=== PATIENT | female | born 1970 | race African-American/Black ===

== ENCOUNTER 2020-12-23 09:12 | Inpatient (IN) | payer OTHER ==
[2020-12-23] MEDS ORDERED: IBUPROFEN 400 MG TABLET (FP) PO PRN (10:03)
[2020-12-23] MEDS ORDERED: METHOCARBAMOL 500 MG TABLET PO PRN (10:03)
[2020-12-23] MEDS ORDERED: LORazepam 1 MG TABLET PO PRN (10:03)
[2020-12-23] MEDS ORDERED: MAGNESIUM HYDROX 2400MG/30ML ORAL SUSPENSION 30 ML CUP PO PRN (10:03)
[2020-12-23] MEDS ORDERED: ACETAMINOPHEN 325 MG TABLET (FP) PO PRN ×2 (10:03)
[2020-12-23] MEDS ORDERED: MENTHOL/PHENOL 1 EACH UD MM PRN (10:03)
[2020-12-23] MEDS ORDERED: MAG HYDROX/AL HYDROX/SIMETH 30 ML UNIT-DOSE CUP PO PRN (10:03)
[2020-12-23] MEDS ORDERED: BISMUTH SUBSALICYLATE 524 MG/30 ML PO PRN (10:03)
[2020-12-23] MEDS ORDERED: ONDANSETRON *ODT* 4 MG TABLET SL PRN (10:03)
[2020-12-23] MEDS ORDERED: MAGNESIUM CITRATE 300 ML BOTTLE PO PRN (10:03)
[2020-12-23 10:11] VITALS: BMI 28.3
[2020-12-23] MEDS ORDERED: TRIMETHOBENZAMIDE HCL 200MG/2ML INJ IM ONE (10:45)
[2020-12-23] MEDS: PRENATAL VITAMINS W/ FOLIC ACID TABLET (FP) PO SCH (11:40)
[2020-12-23] MEDS: LORazepam 2 MG TABLET PO SCH ×3 (11:40→22:14)
[2020-12-23] MEDS ORDERED: hydrOXYzine PAMOATE 25 MG CAPSULE (FP) PO SCH (14:00)
[2020-12-23 14:24] LABS: HEMATOCRIT 40.2 % (32.4-45.2); HEMOGLOBIN 13.6 GM/dL (10.7-15.3); MCH 31.6 pg (25.7-33.7); MCHC 33.7 g/dl (32.0-36.0); MEAN CELL VOLUME 93.6 fl (80-96); MEAN PLT VOLUME 9.9 fl (7.5-11.1); PLATELET COUNT 201 K/MM3 (134-434); RDW 19.2 % (11.6-15.6); WHITE BLOOD COUNT 6.8 K/mm3 (4.0-10.0)
[2020-12-23 14:36] LABS: ALBUMIN 4.8 g/dl (3.4-5.0); BLOOD UREA NITROGEN 13.5 mg/dL (7-18); CALCIUM 9.8 mg/dL (8.5-10.1)
[2020-12-23 14:37] LABS: BILIRUBIN,TOTAL 0.9 mg/dL (0.2-1); TOT PROT 8.4 g/dl (6.4-8.2)
[2020-12-23 14:39] LABS: CREATININE 0.7 mg/dL (0.55-1.3)
[2020-12-23 15:22] LABS: HIV INTERPRETATION NEGATIVE (NEGATIVE)
[2020-12-23] MEDS: hydrOXYzine PAMOATE 25 MG CAPSULE (FP) PO PRN (17:42)
[2020-12-23] MEDS: MELATONIN 5 MG TABLETS PO SCH (22:14)
[2020-12-23] MEDS: THIAMINE HCL 100 MG TABLET (FP) PO SCH (22:14)
[2020-12-24] MEDS: LORazepam 2 MG TABLET PO SCH ×4 (05:56→22:36)
[2020-12-24] MEDS: metFORMIN HCL 500 MG TABLET (FP) PO SCH (08:54)
[2020-12-24] MEDS: PRENATAL VITAMINS W/ FOLIC ACID TABLET (FP) PO SCH (10:52)
[2020-12-24] MEDS: NAPROXEN 500 MG TABLET PO SCH ×2 (10:52→22:36)
[2020-12-24] MEDS ORDERED: metFORMIN HCL 500 MG TABLET (FP) PO SCH (11:00)
[2020-12-24] MEDS: hydrOXYzine PAMOATE 25 MG CAPSULE (FP) PO PRN (22:36)
[2020-12-24] MEDS: THIAMINE HCL 100 MG TABLET (FP) PO SCH (22:36)
[2020-12-24] MEDS: MELATONIN 5 MG TABLETS PO SCH (22:36)
[2020-12-25] MEDS: LORazepam 1 MG TABLET PO SCH ×4 (06:22→22:19)
[2020-12-25] MEDS: metFORMIN HCL 500 MG TABLET (FP) PO SCH (06:23)
[2020-12-25] MEDS: hydrOXYzine PAMOATE 25 MG CAPSULE (FP) PO PRN ×3 (06:28→22:18)
[2020-12-25] MEDS: PRENATAL VITAMINS W/ FOLIC ACID TABLET (FP) PO SCH (10:07)
[2020-12-25] MEDS: NAPROXEN 500 MG TABLET PO SCH ×2 (10:07→22:17)
[2020-12-25] MEDS: MELATONIN 5 MG TABLETS PO SCH (22:17)
[2020-12-25] MEDS: THIAMINE HCL 100 MG TABLET (FP) PO SCH (22:17)
[2020-12-26] MEDS ORDERED: LORazepam 0.5 MG TABLET PO PRN
[2020-12-26] MEDS: LORazepam 0.5 MG TABLET PO SCH ×4 (06:07→22:31)
[2020-12-26] MEDS: metFORMIN HCL 500 MG TABLET (FP) PO SCH (06:08)
[2020-12-26 10:07] LABS: SARS-CoV-2 NAA Not Detected (Not Detected)
[2020-12-26] MEDS: NAPROXEN 500 MG TABLET PO SCH ×2 (10:24→22:30)
[2020-12-26] MEDS: PRENATAL VITAMINS W/ FOLIC ACID TABLET (FP) PO SCH (10:24)
[2020-12-26] MEDS: MELATONIN 5 MG TABLETS PO SCH (22:30)
[2020-12-26] MEDS: THIAMINE HCL 100 MG TABLET (FP) PO SCH (22:30)
[2020-12-27] MEDS ORDERED: LORazepam 0.5 MG TABLET PO ONE (05:00)
[2020-12-27 06:42] VITALS: BP 104/63; PULSE 68; TEMP 96.6
[2020-12-27] MEDS: metFORMIN HCL 500 MG TABLET (FP) PO SCH (06:53)
[2020-12-27] MEDS: hydrOXYzine PAMOATE 25 MG CAPSULE (FP) PO PRN (06:53)
== END 2020-12-27 10:05 | disposition home or self-care (01) | DRG 775 ==
LOC: YASAS 09:12 → Y3N 10:22
PROVIDERS: ADMIT Allergy & Immunology; ATTEND Allergy & Immunology
PROC: HZ2ZZZZ Detoxification Services for Substance Abuse Treatment (ICD-10-PCS; principal; 2020-12-23)
DX: F10.230 Alcohol dependence with withdrawal, uncomplicated (principal); F12.20 Cannabis dependence, uncomplicated; F32.9 Major depressive disorder, single episode, unspecified; E11.9 Type 2 diabetes mellitus without complications; Z79.84 Long term (current) use of oral hypoglycemic drugs; M50.20 Other cervical disc displacement, unspecified cervical region; M19.90 Unspecified osteoarthritis, unspecified site
CPT/HCPCS: 36415; 80053; 82962; 85027; 86780; 87389; 93005; 93010; C9803; Q0162; U0003; U0005

== ENCOUNTER 2021-08-17 09:54 | Inpatient (IN) | payer OTHER ==
[2021-08-17] MEDS ORDERED: MENTHOL/PHENOL 1 EACH UD MM PRN (10:19)
[2021-08-17] MEDS ORDERED: MAG HYDROX/AL HYDROX/SIMETH 30 ML UNIT-DOSE CUP PO PRN (10:19)
[2021-08-17] MEDS ORDERED: MAGNESIUM CITRATE 300 ML BOTTLE PO PRN (10:19)
[2021-08-17] MEDS ORDERED: ONDANSETRON *ODT* 4 MG TABLET SL PRN (10:19)
[2021-08-17] MEDS ORDERED: BISMUTH SUBSALICYLATE 262 MG/15 ML BTL PO PRN (10:19)
[2021-08-17] MEDS ORDERED: chlordiazePOXIDE HCL 25 MG CAPSULE PO PRN (10:19)
[2021-08-17] MEDS ORDERED: MAGNESIUM HYDROX 2400MG/30ML ORAL SUSPENSION 30 ML CUP PO PRN (10:19)
[2021-08-17] MEDS ORDERED: ACETAMINOPHEN 325 MG TABLET (FP) PO PRN (10:19)
[2021-08-17 10:39] VITALS: BMI 26.4
[2021-08-17] MEDS: PRENATAL VITAMINS W/ FOLIC ACID TABLET (FP) PO SCH (12:03)
[2021-08-17] MEDS: chlordiazePOXIDE HCL 25 MG CAPSULE PO SCH ×3 (12:04→22:51)
[2021-08-17] MEDS: hydrOXYzine PAMOATE 25 MG CAPSULE (FP) PO SCH ×3 (13:10→22:55)
[2021-08-17 15:33] LABS: HEMATOCRIT 38.1 % (32.4-45.2); HEMOGLOBIN 12.7 GM/dL (10.7-15.3); MCH 30.3 pg (25.7-33.7); MCHC 33.4 g/dl (32.0-36.0); MEAN CELL VOLUME 90.6 fl (80-96); MEAN PLT VOLUME 9.8 fl (7.5-11.1); PLATELET COUNT 202 10^3/uL (134-434); RDW 18.5 % (11.6-15.6); WHITE BLOOD COUNT 4.5 K/mm3 (4.0-10.0)
[2021-08-17 15:42] LABS: ALBUMIN 4.3 g/dl (3.4-5.0); BLOOD UREA NITROGEN 13.8 mg/dL (7-18)
[2021-08-17 15:43] LABS: CALCIUM 9.6 mg/dL (8.5-10.1)
[2021-08-17 15:45] LABS: CREATININE 0.7 mg/dL (0.55-1.3)
[2021-08-17 15:46] LABS: BILIRUBIN,TOTAL 0.6 mg/dL (0.2-1); TOT PROT 7.6 g/dl (6.4-8.2)
[2021-08-17] MEDS: ACETAMINOPHEN 325 MG TABLET (FP) PO PRN (18:01)
[2021-08-17] MEDS: THIAMINE HCL 100 MG TABLET (FP) PO SCH (22:55)
[2021-08-17] MEDS: MELATONIN 5 MG TABLETS PO SCH (22:55)
[2021-08-18] MEDS: hydrOXYzine PAMOATE 25 MG CAPSULE (FP) PO SCH ×5 (05:34→22:13)
[2021-08-18] MEDS: chlordiazePOXIDE HCL 25 MG CAPSULE PO SCH ×4 (05:35→22:14)
[2021-08-18] MEDS: metFORMIN HCL 500 MG TABLET (FP) PO SCH (06:10)
[2021-08-18] MEDS: PRENATAL VITAMINS W/ FOLIC ACID TABLET (FP) PO SCH (10:09)
[2021-08-18] MEDS: METHOCARBAMOL 500 MG TABLET PO PRN (16:21)
[2021-08-18] MEDS: THIAMINE HCL 100 MG TABLET (FP) PO SCH (22:13)
[2021-08-18] MEDS: MELATONIN 5 MG TABLETS PO SCH (22:14)
[2021-08-18] MEDS: IBUPROFEN 400 MG TABLET (FP) PO PRN (22:15)
[2021-08-19] MEDS: hydrOXYzine PAMOATE 25 MG CAPSULE (FP) PO SCH ×5 (06:29→22:16)
[2021-08-19] MEDS: chlordiazePOXIDE HCL 25 MG CAPSULE PO SCH ×4 (06:30→22:17)
[2021-08-19] MEDS: metFORMIN HCL 500 MG TABLET (FP) PO SCH (06:31)
[2021-08-19] MEDS: PRENATAL VITAMINS W/ FOLIC ACID TABLET (FP) PO SCH (11:06)
[2021-08-19] MEDS: ACETAMINOPHEN 325 MG TABLET (FP) PO PRN (17:43)
[2021-08-19] MEDS: THIAMINE HCL 100 MG TABLET (FP) PO SCH (22:16)
[2021-08-19] MEDS: MELATONIN 5 MG TABLETS PO SCH (22:16)
[2021-08-19] MEDS: IBUPROFEN 400 MG TABLET (FP) PO PRN (22:18)
[2021-08-20] MEDS ORDERED: chlordiazePOXIDE HCL 10 MG CAPSULE PO PRN
[2021-08-20] MEDS: hydrOXYzine PAMOATE 25 MG CAPSULE (FP) PO SCH ×5 (06:32→22:17)
[2021-08-20] MEDS: metFORMIN HCL 500 MG TABLET (FP) PO SCH (06:32)
[2021-08-20] MEDS: chlordiazePOXIDE HCL 10 MG CAPSULE PO SCH ×4 (06:32→22:16)
[2021-08-20] MEDS: PRENATAL VITAMINS W/ FOLIC ACID TABLET (FP) PO SCH (10:19)
[2021-08-20] MEDS: ACETAMINOPHEN 325 MG TABLET (FP) PO PRN (18:08)
[2021-08-20] MEDS: THIAMINE HCL 100 MG TABLET (FP) PO SCH (22:17)
[2021-08-20] MEDS: MELATONIN 5 MG TABLETS PO SCH (22:17)
[2021-08-21] MEDS: chlordiazePOXIDE HCL 10 MG CAPSULE PO SCH ×2 (05:57→17:56)
[2021-08-21] MEDS: hydrOXYzine PAMOATE 25 MG CAPSULE (FP) PO SCH ×5 (05:57→21:55)
[2021-08-21] MEDS: ACETAMINOPHEN 325 MG TABLET (FP) PO PRN (05:59)
[2021-08-21] MEDS: metFORMIN HCL 500 MG TABLET (FP) PO SCH (06:00)
[2021-08-21] MEDS: PRENATAL VITAMINS W/ FOLIC ACID TABLET (FP) PO SCH (10:11)
[2021-08-21] MEDS: METHOCARBAMOL 500 MG TABLET PO PRN ×2 (17:57→23:34)
[2021-08-21] MEDS: MELATONIN 5 MG TABLETS PO SCH (21:55)
[2021-08-21] MEDS: THIAMINE HCL 100 MG TABLET (FP) PO SCH (21:55)
[2021-08-21] MEDS: IBUPROFEN 400 MG TABLET (FP) PO PRN (21:57)
[2021-08-22] MEDS ORDERED: chlordiazePOXIDE HCL 10 MG CAPSULE PO ONE (05:00)
[2021-08-22] MEDS: METHOCARBAMOL 500 MG TABLET PO PRN (06:20)
[2021-08-22] MEDS: hydrOXYzine PAMOATE 25 MG CAPSULE (FP) PO SCH (06:20)
[2021-08-22 07:07] VITALS: TEMP 96.8
[2021-08-22] MEDS: metFORMIN HCL 500 MG TABLET (FP) PO SCH (07:46)
[2021-08-22 09:12] VITALS: BP 111/64; PULSE 80
== END 2021-08-22 09:30 | disposition home or self-care (01) | DRG 775 ==
LOC: YASAS 09:54 → Y3N 10:35
PROVIDERS: ADMIT Allergy & Immunology; ATTEND Allergy & Immunology
PROC: HZ2ZZZZ Detoxification Services for Substance Abuse Treatment (ICD-10-PCS; principal; 2021-08-17)
DX: F10.230 Alcohol dependence with withdrawal, uncomplicated (principal); F12.20 Cannabis dependence, uncomplicated; F19.282 Other psychoactive substance dependence with psychoactive substance-induced sleep disorder; F19.24 Other psychoactive substance dependence with psychoactive substance-induced mood disorder; F32.A Depression, unspecified; E11.9 Type 2 diabetes mellitus without complications; Z79.84 Long term (current) use of oral hypoglycemic drugs; M50.20 Other cervical disc displacement, unspecified cervical region; Z62.810 Personal history of physical and sexual abuse in childhood; Z91.410 Personal history of adult physical and sexual abuse
CPT/HCPCS: 36415; 80053; 81025; 82962; 85027; 86780; C9803; U0003; U0005

== ENCOUNTER 2022-08-02 18:16 | Inpatient (IN) | payer OTHER ==
[2022-08-02 18:38] VITALS: BMI 27.3
[2022-08-02] MEDS ORDERED: ACETAMINOPHEN 325 MG TABLET (FP) PO PRN ×2 (20:02)
[2022-08-02] MEDS ORDERED: DICYCLOMINE HCL 10 MG CAPSULE PO PRN (20:02)
[2022-08-02] MEDS ORDERED: MAGNESIUM HYDROX 2400MG/30ML ORAL SUSPENSION 30 ML CUP PO PRN (20:02)
[2022-08-02] MEDS ORDERED: BISMUTH SUBSALICYLATE 524 MG/30 ML PO PRN (20:02)
[2022-08-02] MEDS ORDERED: BENZOCAINE/MENTHOL (CHLORASEPTIC ) LOZENGE MM PRN (20:02)
[2022-08-02] MEDS ORDERED: LOPERAMIDE HCL 2 MG CAPSULE PO PRN (20:02)
[2022-08-02] MEDS ORDERED: ONDANSETRON *ODT* 4 MG TABLET SL PRN (20:02)
[2022-08-02] MEDS ORDERED: NALOXONE HCL (KLOXXADO) 8 MG SPRAY NS PRN (20:02)
[2022-08-02] MEDS ORDERED: POLYETHYLENE GLYCOL (HEALTHYLAX) 3350 17 GM PACKET PO PRN (20:02)
[2022-08-02] MEDS ORDERED: IBUPROFEN 400 MG TABLET (FP) PO PRN (20:02)
[2022-08-02] MEDS ORDERED: NICOTINE 10 MG CARTRIDGE (INHALER) IH PRN (20:02)
[2022-08-02] MEDS ORDERED: chlordiazePOXIDE HCL 25 MG CAPSULE PO PRN (20:02)
[2022-08-02] MEDS ORDERED: MAG HYDROX/AL HYDROX/SIMETH 30 ML UNIT-DOSE CUP PO PRN (20:02)
[2022-08-02] MEDS: NICOTINE 14 MG/24 HOURS TOPICAL PATCH TD SCH (21:32)
[2022-08-02] MEDS: PRENATAL VITAMINS W/ FOLIC ACID TABLET (FP) PO SCH (21:32)
[2022-08-02] MEDS: chlordiazePOXIDE HCL 25 MG CAPSULE PO SCH (22:10)
[2022-08-02] MEDS: MELATONIN 5 MG TABLETS PO SCH (22:10)
[2022-08-02] MEDS: THIAMINE HCL 100 MG TABLET (FP) PO SCH (22:10)
[2022-08-02] MEDS: METHOCARBAMOL 500 MG TABLET PO PRN (22:11)
[2022-08-03] MEDS: chlordiazePOXIDE HCL 25 MG CAPSULE PO SCH ×4 (05:44→22:04)
[2022-08-03] MEDS: metFORMIN HCL 500 MG TABLET (FP) PO SCH (06:26)
[2022-08-03] MEDS: NICOTINE 14 MG/24 HOURS TOPICAL PATCH TD SCH (10:15)
[2022-08-03] MEDS: PRENATAL VITAMINS W/ FOLIC ACID TABLET (FP) PO SCH (10:15)
[2022-08-03 11:50] LABS: HEMATOCRIT 39.5 % (32.4-45.2); HEMOGLOBIN 12.9 GM/dL (10.7-15.3); MCH 28.9 pg (25.7-33.7); MCHC 32.6 g/dl (32.0-36.0); MEAN CELL VOLUME 88.6 fl (80-96); MEAN PLT VOLUME 9.9 fl (7.5-11.1); PLATELET COUNT 201 10^3/uL (134-434); RBC 4.46 M/mm3 (3.60-5.2); RDW 14.9 % (11.6-15.6); WHITE BLOOD COUNT 4.4 K/mm3 (4.0-10.0)
[2022-08-03 12:04] LABS: ALBUMIN 3.6 g/dl (3.4-5.0); BLOOD UREA NITROGEN 13.7 mg/dL (7-18); CALCIUM 9.4 mg/dL (8.5-10.1); TOT PROT 6.8 g/dl (6.4-8.2)
[2022-08-03 12:05] LABS: BILIRUBIN,TOTAL 0.7 mg/dL (0.2-1); CREATININE 0.8 mg/dL (0.55-1.3)
[2022-08-03 12:53] LABS: HIV INTERPRETATION NEGATIVE (NEGATIVE)
[2022-08-03] MEDS: IBUPROFEN 600 MG TABLET (FP) PO PRN (17:38)
[2022-08-03] MEDS: MELATONIN 5 MG TABLETS PO SCH (22:03)
[2022-08-03] MEDS: THIAMINE HCL 100 MG TABLET (FP) PO SCH (22:03)
[2022-08-03] MEDS: METHOCARBAMOL 500 MG TABLET PO PRN (22:08)
[2022-08-04] MEDS: METHOCARBAMOL 500 MG TABLET PO PRN (05:43)
[2022-08-04] MEDS: chlordiazePOXIDE HCL 25 MG CAPSULE PO SCH ×4 (05:43→23:05)
[2022-08-04] MEDS: metFORMIN HCL 500 MG TABLET (FP) PO SCH (06:14)
[2022-08-04] MEDS: IBUPROFEN 600 MG TABLET (FP) PO PRN (10:17)
[2022-08-04] MEDS: PRENATAL VITAMINS W/ FOLIC ACID TABLET (FP) PO SCH (10:17)
[2022-08-04] MEDS: NICOTINE 14 MG/24 HOURS TOPICAL PATCH TD SCH (10:18)
[2022-08-04] MEDS: MELATONIN 5 MG TABLETS PO SCH (23:04)
[2022-08-04] MEDS: THIAMINE HCL 100 MG TABLET (FP) PO SCH (23:05)
[2022-08-05] MEDS ORDERED: chlordiazePOXIDE HCL 10 MG CAPSULE PO PRN
[2022-08-05] MEDS: chlordiazePOXIDE HCL 10 MG CAPSULE PO SCH ×4 (05:56→22:45)
[2022-08-05] MEDS: metFORMIN HCL 500 MG TABLET (FP) PO SCH (08:22)
[2022-08-05] MEDS: NICOTINE 14 MG/24 HOURS TOPICAL PATCH TD SCH (10:38)
[2022-08-05] MEDS: PRENATAL VITAMINS W/ FOLIC ACID TABLET (FP) PO SCH (10:38)
[2022-08-05] MEDS: METHOCARBAMOL 500 MG TABLET PO PRN ×2 (10:39→17:43)
[2022-08-05] MEDS: hydrOXYzine PAMOATE 25 MG CAPSULE (FP) PO PRN (10:39)
[2022-08-05] MEDS: MELATONIN 5 MG TABLETS PO SCH (22:44)
[2022-08-05] MEDS: THIAMINE HCL 100 MG TABLET (FP) PO SCH (22:44)
[2022-08-05] MEDS: IBUPROFEN 600 MG TABLET (FP) PO PRN (22:45)
[2022-08-06] MEDS: metFORMIN HCL 500 MG TABLET (FP) PO SCH (06:36)
[2022-08-06] MEDS: chlordiazePOXIDE HCL 10 MG CAPSULE PO SCH ×2 (06:36→17:30)
[2022-08-06] MEDS: NICOTINE 14 MG/24 HOURS TOPICAL PATCH TD SCH (10:26)
[2022-08-06] MEDS: PRENATAL VITAMINS W/ FOLIC ACID TABLET (FP) PO SCH (10:26)
[2022-08-06] MEDS: METHOCARBAMOL 500 MG TABLET PO PRN ×3 (10:27→22:58)
[2022-08-06] MEDS: hydrOXYzine PAMOATE 25 MG CAPSULE (FP) PO PRN ×2 (17:31→22:07)
[2022-08-06] MEDS: MELATONIN 5 MG TABLETS PO SCH (22:07)
[2022-08-06] MEDS: THIAMINE HCL 100 MG TABLET (FP) PO SCH (22:07)
[2022-08-06] MEDS: IBUPROFEN 600 MG TABLET (FP) PO PRN (22:59)
[2022-08-07] MEDS ORDERED: chlordiazePOXIDE HCL 10 MG CAPSULE PO ONE (05:00)
[2022-08-07] MEDS: metFORMIN HCL 500 MG TABLET (FP) PO SCH (06:13)
[2022-08-07 10:31] VITALS: BP 109/65; PULSE 79; RESP 96; TEMP 96.8
[2022-08-07] MEDS: PRENATAL VITAMINS W/ FOLIC ACID TABLET (FP) PO SCH (10:43)
[2022-08-07] MEDS: METHOCARBAMOL 500 MG TABLET PO PRN (10:43)
[2022-08-07] MEDS: NICOTINE 14 MG/24 HOURS TOPICAL PATCH TD SCH (10:43)
== END 2022-08-07 11:18 | disposition home or self-care (01) | DRG 775 ==
LOC: YASAS 18:16 → Y3N 21:09 → Y6N 08-04 19:14
PROVIDERS: ADMIT Allergy & Immunology; ATTEND Surgery
PROC: HZ2ZZZZ Detoxification Services for Substance Abuse Treatment (ICD-10-PCS; principal; 2022-08-02)
DX: F10.230 Alcohol dependence with withdrawal, uncomplicated (principal); F12.20 Cannabis dependence, uncomplicated; F17.210 Nicotine dependence, cigarettes, uncomplicated; F19.282 Other psychoactive substance dependence with psychoactive substance-induced sleep disorder; F19.24 Other psychoactive substance dependence with psychoactive substance-induced mood disorder; F32.A Depression, unspecified; E11.9 Type 2 diabetes mellitus without complications; Z79.84 Long term (current) use of oral hypoglycemic drugs; M50.20 Other cervical disc displacement, unspecified cervical region; Z20.822 Contact with and (suspected) exposure to COVID-19; Z28.310 Unvaccinated for COVID-19; Z28.9 Immunization not carried out for unspecified reason
CPT/HCPCS: 36415; 80053; 82962; 85027; 86780; 87389; 87811; C9803-CS; U0003; U0005